=== PATIENT | male | born 1960 | race Caucasian/White ===

== ENCOUNTER 2022-04-06 06:26 | Emergency (ER) | payer MEDICAID ==
[~2022-04-06] VITALS: Ht 167.6 cm; Wt 130.6 kg
[2022-04-06 06:27] VITALS: BP 147/85
--- NOTE | 2022-04-06 06:31 | NUR ---
Bernardo alejo in [facility] - 04/06/22 at 0632 by [facility] pt off-loaded to lobby
--- NOTE | 2022-04-06 06:32 | NUR ---
pt offloaded to bed 07.
--- NOTE | 2022-04-06 06:32 | NUR ---
61 yo m yazmin from [facility] with c/c of flu-like symptoms x2days. +fever +cough +congestion. hx:slow hr nka
--- NOTE | 2022-04-06 06:41 | NUR ---
Dr. Escoto examining patient.
--- NOTE | 2022-04-06 06:48 | NUR ---
X-Ray at bedside.
[2022-04-06] MEDS ORDERED: NACL 0.9% 1,000 ML IV ONE ×2 (06:50→07:50)
[2022-04-06] MEDS ORDERED: KETOROLAC 15 MG/ML VIAL IVP ONE (06:50)
[2022-04-06] MEDS ORDERED: guaiFENesin DM 200/20 MG-10 ML 10 ML UDC PO ONE (06:50)
--- NOTE | 2022-04-06 06:59 | NUR ---
swabs and blood collected and taken to lab
[2022-04-06 07:01] LABS: BASOPHILS # (AUTO) 0.1 K/uL (0.00-0.22); BASOPHILS % (AUTO) 0.6 % (0.0-2.0); EOSINOPHILS # (AUTO) 0.1 K/uL (0-0.4); EOSINOPHILS % (AUTO) 1.3 % (0.0-4.0); HEMATOCRIT 41.7 % (36-52); HEMOGLOBIN 13.7 g/dL (12.0-18.0); LYMPHOCYTES # (AUTO) 0.2 K/uL (2.0-11.5); LYMPHOCYTES % (AUTO) 2.4 % (20.5-51.1); MEAN CORPUSCULAR HEMOGLOBIN 31 pg (27-31); MEAN CORPUSCULAR HGB CONC 33 g/dL (33-37); MEAN CORPUSCULAR VOLUME 95.3 fL (80-94); MONOCYTES # (AUTO) 0.9 K/uL (0.8-1.0); MONOCYTES % (AUTO) 11.1 % (1.7-9.3); NEUTROPHILS # (AUTO) 7.1 K/uL (1.8-7.7); PLATELET COUNT (AUTO) 152 K/uL (140-450); RED BLOOD CELL COUNT(AUTO) 4.37 MIL/uL (4.20-6.10); RED CELL DISTRIBUTION WIDTH 15.3 % (11.6-13.7); WHITE BLOOD COUNT (AUTO) 8.4 K/uL (4.8-10.8)
[2022-04-06 07:13] LABS: ANION GAP 11.9 (8-16); CARBON DIOXIDE 28.4 mmol/L (21-32); CREATININE 1.1 mg/dL (0.6-1.3); POTASSIUM 4.3 mmol/L (3.5-5.1)
--- NOTE | 2022-04-06 07:15 | NUR ---
Received report from JAVI Gomez. Assumed care at this time.
[2022-04-06] MEDS ORDERED: TAM75 PO (07:19)
[2022-04-06] MEDS ORDERED: ROB PO (07:20)
[2022-04-06 07:27] LABS: NEUTROPHILS % (AUTO) 84.6 % (42.2-75.2)
--- NOTE | 2022-04-06 07:41 | NUR ---
Pt ambulated to restroom with steady gait.
--- NOTE | 2022-04-06 09:01 | NUR ---
IV removed, catheter intact and site benign. Applied folded 4x4 gauze and tape to stop bleeding.
[2022-04-06 09:03] VITALS: BP 133/85
--- NOTE | 2022-04-06 09:03 | NUR ---
ADPatient discharged with v/s stable. Written and verbal after care instructions given and explained. Patient alert, oriented and verbalized understanding of instructions. Ambulatory with steady gait. All questions addressed prior to discharge. ID band removed. Patient advised to follow up with PMD. Rx of Robitussin and Tamiflu given. Patient educated on indication of medication including possible reaction and side effects. Opportunity to ask questions provided and answered.
== END 2022-04-06 09:03 | disposition home or self-care (01) ==
LOC: MED 06:26
DX: J11.1 Influenza due to unidentified influenza virus with other respiratory manifestations (principal); Z20.822 Contact with and (suspected) exposure to COVID-19; Z79.899 Other long term (current) drug therapy
CPT/HCPCS: 36415; 71045; 80048; 85025; 87426; 87804; 96361; 96374; 99284; J1885; J7030